=== PATIENT | female | born 1980 | race Caucasian/White ===

== ENCOUNTER 2021-02-11 08:22 | Emergency (ER) | payer BC, MEDICAID ==
[~2021-02-11] VITALS: Ht 157.5 cm; Wt 69.0 kg
[~2021-02-11 08:22] MED LIST: CYCL-394 PO; PHEN-786 PO; ZOF4T PO
[2021-02-11 08:25] VITALS: BP 116/78
== END 2021-02-11 09:22 | disposition home or self-care (01) ==
LOC: ER 08:22
DX: S93.401A Sprain of unspecified ligament of right ankle, initial encounter (principal); M25.571 Pain in right ankle and joints of right foot; Z98.51 Tubal ligation status; Z88.5 Allergy status to narcotic agent; Z79.899 Other long term (current) drug therapy; X58.XXXA Exposure to other specified factors, initial encounter; Y93.89 Activity, other specified; Y92.89 Other specified places as the place of occurrence of the external cause; Y99.8 Other external cause status
CPT/HCPCS: 29515; 73610; 99283

== ENCOUNTER 2021-03-03 16:22 | Emergency (ER) | payer MEDICAID ==
[~2021-03-03] VITALS: Ht 157.5 cm; Wt 77.3 kg
[2021-03-03 16:54] VITALS: BP 129/88
[2021-03-03] MEDS ORDERED: HYDR-3965 PO (20:29)
== END 2021-03-03 20:51 | disposition home or self-care (01) ==
LOC: ER 16:23
DX: M25.561 Pain in right knee (principal); Z88.8 Allergy status to other drugs, medicaments and biological substances; Z79.899 Other long term (current) drug therapy; Z87.440 Personal history of urinary (tract) infections; Z87.442 Personal history of urinary calculi; Z98.51 Tubal ligation status
CPT/HCPCS: 29530; 73564; 99283

== ENCOUNTER 2023-01-29 03:14 | Emergency (ER) | payer MEDICAID ==
[~2023-01-29] VITALS: Ht 157.5 cm; Wt 81.8 kg
[2023-01-29 03:52] LABS: BASOPHILS % (AUTO) 0.5 % (0-1); EOSINOPHILS # (AUTO) 0.2 X10'3 (0-0.9); EOSINOPHILS % (AUTO) 2.5 % (0-6); HEMATOCRIT 38.8 % (35.0-45.0); HEMOGLOBIN 13.5 g/dl (12.0-16.0); LYMPHOCYTES # (AUTO) 2.8 X10'3 (1.1-4.8); LYMPHOCYTES % (AUTO) 34.8 % (21-51); MEAN CORPUSCULAR HEMOGLOBIN 31.8 PG (27.0-31.0); MEAN CORPUSCULAR HGB CONC 34.8 g/dL (33.0-36.5); MEAN CORPUSCULAR VOLUME 91.5 FL (78-98); MEAN PLATELET VOLUME 8.7 FL (7.4-10.4); MONOCYTES # (AUTO) 0.5 X10'3 (0-0.9); MONOCYTES % (AUTO) 6.7 % (2-12); NEUTROPHILS # (AUTO) 4.4 X10'3 (1.8-7.7); NEUTROPHILS % (AUTO) 55.5 % (42-75); PLATELET COUNT 259 X10'3 (140-440); RED BLOOD COUNT 4.24 X10'6 (4.20-5.60); RED CELL DISTRIBUTION WIDTH 12.1 % (11.5-14.5)
[2023-01-29] MEDS ORDERED: LIDOcaine Viscous 15ml cup MM ONE (03:55)
[2023-01-29] MEDS ORDERED: acetaminophen 325mg tablet PO ONE (03:55)
[2023-01-29] MEDS ORDERED: famotidine 20mg tablet PO ONE (03:55)
[2023-01-29] MEDS ORDERED: mag hydrox/Alum hydrox/simeth 30ml oral suspension PO ONE (03:55)
[2023-01-29 04:07] LABS: ALANINE AMINOTRANSFERASE 30 U/L (12-78); ALBUMIN 3.8 G/DL (3.4-5.0); ALBUMIN/GLOBULIN RATIO 1.2 (1.1-1.5); ALKALINE PHOSPHATASE 76 IU/L (46-116); ANION GAP 7 (8-16); ASPARTATE AMINO TRANSFERASE 14 U/L (10-37); BILIRUBIN,TOTAL 0.2 MG/DL (0.1-1.0); BLOOD UREA NITROGEN 18 MG/DL (7-18); BUN/CREATININE RATIO 22.2 (10.0-20.0); CALCIUM 9.1 MG/DL (8.5-10.1); CHLORIDE 106 MMOL/L (99-107); CREATININE 0.81 MG/DL (0.40-0.90); GLUCOSE 143 MG/DL (70-104); POTASSIUM 3.7 MMOL/L (3.5-5.1); SODIUM 139 MMOL/L (135-145); TOTAL CARBON DIOXIDE 25.9 MMOL/L (24-32); eGFR 77 ML/MIN
[2023-01-29] MEDS ORDERED: aspirin 325mg tablet PO ONE (04:20)
[2023-01-29] MEDS ORDERED: aspirin 325mg tablet ONE (04:24)
[2023-01-29 04:43] LABS: D-DIMER 0.84 MG/L FEU (0-0.50)
[2023-01-29] MEDS ORDERED: methylPREDNISolone sod succ 125mg/2ml vial IV ONE (04:50)
[2023-01-29] MEDS ORDERED: ipratropium/albuterol 3ml nebule NEB ONE (04:50)
[2023-01-29 06:10] VITALS: BP 105/75
== END 2023-01-29 06:11 | disposition home or self-care (01) ==
LOC: ER 03:15
DX: R07.9 Chest pain, unspecified (principal)
CPT/HCPCS: 36415; 71045; 80053; 83880; 84484; 85025; 85379; 93005; 99285

== ENCOUNTER 2025-02-04 13:08 | Emergency (ER) | payer OTHER, BC ==
[~2025-02-04] VITALS: Ht 157.5 cm; Wt 91.0 kg
[2025-02-04 13:17] VITALS: BP 149/94; PULSE 81; RESP 18; O2SAT 98
--- NOTE | 2025-02-04 13:52 | RADIOLOGY REPORT ---
CLINICAL INDICATION: LT.ANKLE PAIN TECHNIQUE: Left DI ANKLE, COMPLETE(3VW MIN) Comparison: ANKLE, COMPLETE(3VW MIN) on DOS: 02/11/21 FINDINGS/IMPRESSION: : There is no evidence of acute fracture or dislocation. Soft tissues are unremarkable.
--- NOTE | 2025-02-04 16:37 | Physician Documentation ---
History of Present Illness ~ Chief Complaint: Ankle pain Stated Complaint: ANKLE PAIN/EXTREMITY SWELLING Time Seen by MD: 15:33 Primary Medical Doctor: [facility] HPI 44-year-old female presents as a worker's comp injury exacerbation. States that she has had increased left lower extremity ankle pain and swelling.. She says that she has been seen for her worker's comp injury at [facility] and evaluated for a DVT. Because of her increased leg swelling. Said that the ultrasound was negative in his was done in the last two three weeks Her concern also is that she had a recent allergic reaction to an unknown substance which caused her to itch all over. 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 Denies any recent injury. States she works at the [employer] in his on her feet throughout the day. Reports pain with ambulation Day of Onset: Feb 04, 2025 Tetanus witin 5 years: Yes Medication Reconciliation Allergies: Coded Allergies: codeine (Verified Allergy, 11/18/09) Scheduled Cyclobenzaprine HCl (Cyclobenzaprine HCl), 10 MG PO BID Naproxen (Naproxen), 1 TAB PO Q12H Prednisone (Prednisone), 1 TAB PO DAILY Scheduled PRN Ondansetron ODT* (Zofran ODT*), 1 TAB PO Q6H PRN for nausea/vomiting Phenazopyridine Hcl (Pyridium tablet), 2 TAB PO Q8H PRN for pain with urination Past Medical History Past Medical History: *CARDIOVASCULAR*, Kidney Stones, UTI Past Surgical History: hysterectomy, tubal ligation Other Past Surgical History: Salivary Stone Removal Alcohol Use: None Drug Use: none Lives with: Family Lives In: Home Review of Systems All Other Systems at this time: Reviewed and Negative ROS As stated above in the HPI, otherwise all systems are reviewed and negative. Physical Exam Vital Signs: Temperature: 97.6, Source: Temporal, Heart Rate: 81, Respiratory Rate: 18, BP: 149/94, Pulse Oximetry: 98, Weight: 91.000 Physical Exam General: Alert, no apparent distress. Extremities: Normal range of motion, no deformity. Left ankle notable for swelling in the lateral aspect., negative Michael's Neurologic: Oriented x4. Psychiatric: Normal mood and affect. Skin: Normal color, warm and dry. No edema, no ecchymosis. Progress Results/Orders Results/Orders Orders - NOEL BACA [employer] Ankle, Complete(3vw Min) (02/04/25 13:27) Ortho Orders (02/04/25 ) Completed Orders - NOEL BACA NP Ankle, Complete(3vw Min) (02/04/25 13:27) Vital Signs 02/04/25 02/04/25 13:17 16:53 Temp 97.6 97.6 Pulse 81 Resp 18 B/P (MAP) 149/94 Pulse Ox 98 Medical Decision Making Findings Based on patient's complaint I suspect that she is preventing the healing of a left ankle sprain. Discussed this with the that her maintaining constant ambulation and bearing weight on an injured ankle is going to prevent healing of it. She has missed work for a couple of days I am going to give her a few more days off and advised her to follow up with worker's comp. I am not suspecting DVT as she has already been evaluated for this. Regarding her allergic reaction I advised her this to take cetirizine at home Going to give her some crutches and an ankle brace along with a work note Ankle Diff Dx:Considerations: Include: Abrasion, Arthritis, Contusion, DJD, Fracture-metatarsal, Fracture-fibula, Fracture-tarsal, Fracture-tibia, Gout, Hematoma, Laceration, Malunion, Neurovascular injury, Nonunion, Open fracture, Osteomyelitis, Rheumatoid arthritis, Sprain, Septic, Ulcer, Other Departure Disposition: 01 HOME / SELF CARE / HOMELESS Impression: Primary Impression: Sprain of ankle Condition: Stable Discharge Instructions: Ankle Sprain Departure Forms: Excuse form Work or School Excused From: Work Excuse beginning now through the following date: Feb 07, 2025 May Return but still avoid physical Activity from now until: Feb 07, 2025 May Return to full physical activity as of: Feb 07, 2025 Referrals: NO PRIMARY CARE PROVIDER (PCP) Prescriptions Prednisone (Prednisone) 10 Mg Tablet 1 TAB PO DAILY for 5 Days, #21 TAB Prov: NOEL BACA NP 02/04/25 Naproxen (Naproxen) 500 Mg Tablet 1 TAB PO Q12H, #20 TAB Prov: NOEL BACA NP 02/04/25 Prednisone (Prednisone) 10 Mg Tablet 1 TAB PO DAILY for 5 Days, #5 TAB Prov: NOEL BACA [employer] 02/04/25 Education Educated: Patient Educated regarding: diagnosis Signature Scribe Signature: u Attestation: The note accurately reflects work and decisions made by me.Noel Calvert NP 02/04/25 16:39 NOEL BACA NP Feb 04, 2025 16:37
[2025-02-04 16:53] VITALS: TEMP 97.6
[2025-02-04] MEDS ORDERED: PRED10TA23 PO (16:54)
[2025-02-04] MEDS ORDERED: NAPR-56 PO (16:54)
== END 2025-02-04 16:54 | disposition home or self-care (01) ==
LOC: ER 13:09
DX: S93.402A Sprain of unspecified ligament of left ankle, initial encounter (principal); Z88.5 Allergy status to narcotic agent; Z90.710 Acquired absence of both cervix and uterus; Z87.440 Personal history of urinary (tract) infections; X58.XXXA Exposure to other specified factors, initial encounter; Y93.89 Activity, other specified; Y92.89 Other specified places as the place of occurrence of the external cause; Y99.8 Other external cause status
CPT/HCPCS: 73610; 99283; A6449

== ENCOUNTER 2025-02-14 02:18 | Emergency (ER) | payer BC, OTHER ==
[~2025-02-14] VITALS: Ht 157.5 cm; Wt 90.9 kg
[~2025-02-14 02:18] MED LIST changes: +NAPR-56 PO
--- NOTE | 2025-02-14 02:46 | Physician Documentation ---
History of Present Illness ~ Chief Complaint: Head Injury Stated Complaint: HORSE ACCIDENT Time Seen by MD: 02:32 OK to notify your PCP?: Yes Primary Medical Doctor: JORGITO KING Patient presents to the emergency room for evaluation of facial pain after sneezing. History begins with five days ago patient was bucked off her horse losing consciousness. She would not seek medical attention at this time however during her fall she bit into her lip and was seen by an outside clinic and p laced on antibiotics for human bite to own lip. After sneezing this evening and about midnight she had a sudden feeling of popping in her right maxillary sinus area along with some blurring of vision of her right eye with associated burning-electrical pain pain. No weakness. No pain medicine prior to arrival. Vision of the affected eye is described as blurry and bouncing but denies loss of vision. Pain is exacerbated with palpation and opening mouth and feels a bit numb Tetanus within 5 years?: Yes Medication Reconciliation Allergies: Coded Allergies: codeine (Verified Allergy, Unknown, 02/14/25) Scheduled Amoxicillin Trihydrate (Amoxicillin), 1 TAB PO BID, (Reported) Cyclobenzaprine HCl (Cyclobenzaprine HCl), 10 MG PO BID Gabapentin (Gabapentin), 3 CAP PO Q8H Ketorolac Tromethamine (Ketorolac Tromethamine), 1 TAB PO Q8H, (Reported) Naproxen (Naproxen), 1 TAB PO Q12H Scheduled PRN Ondansetron ODT* (Zofran ODT*), 1 TAB PO Q6H PRN for nausea/vomiting Discontinued Medications Phenazopyridine Hcl (Pyridium tablet), 2 TAB PO Q8H PRN for pain with urination Discontinued Reason: patient no longer taking Prednisone (Prednisone), 1 TAB PO DAILY Discontinued Reason: Auto Discontinued Prednisone (Prednisone), 1 TAB PO DAILY Discontinued Reason: Auto Discontinued Past Medical History Past Medical History: *CARDIOVASCULAR*, Kidney Stones, UTI Past Surgical History: hysterectomy, tubal ligation Other Past Surgical History: Salivary Stone Removal Alcohol Use: None Drug Use: none Lives with: Family Lives In: Home Physical Exam Vital Signs: Temperature: 97.7, Heart Rate: 77, Respiratory Rate: 16, BP: 142/91, Pulse Oximetry: 99, Weight: 90.900 Oxygen Flow Rate: 0 Physical Exam General: Patient is awake, alert, oriented x4 in mild distress Head: Normocephalic and atraumatic. Eyes: Conjunctival normal. EOMI. PERRL. ENT: Mucous membranes moist. Tenderness to palpation to right maxillary area Neck: Supple, trachea is midline. Chest: Clear to auscultation bilaterally without rales, rhonchi, or wheezes. There is no accessory muscle use or retractions. Cardiac: RRR without murmurs, gallops, or rubs. Neuro: Cranial nerves II-XII grossly intact. No focal neuro deficits. Patient ambulating without difficulty. Speaking clearly Progress Progress Note Patient's vision changes have resolved. Headache improving Results/Orders Results/Orders Orders - EARNEST DOYLE MD Ct Head (02/14/25 02:50) Ct Facial Bones/Soft Tissue (02/14/25 02:50) Completed Orders - EARNEST DOYLE MD Ct Head (02/14/25 02:50) Ct Facial Bones/Soft Tissue (02/14/25 02:50) Acetaminophen 1,000mg/100ml Iv (Ofirmev (02/14/25 02:45) Ondansetron Inj. (Zofran 4mg/2ml Vial) (02/14/25 02:45) Diphenhydramine Inj (Benadryl Inj.) (02/14/25 02:45) Fentanyl/Pf (Fentanyl 0.05 Mg/Ml Syringe (02/14/25 03:40) Ketorolac Trometh 15mg/Ml Vial (Toradol (02/14/25 03:45) Prochlorperazine Inj (Compazine Inj) (02/14/25 03:45) Sumatriptan Succ. Inj. (Imitrex 6mg Inj. (02/14/25 03:45) Normal Saline 1000ml (Sodium Chloride 10 (02/14/25 05:10) Carbamazepine Chew Tablet (Tegretol Chew (02/14/25 05:25) Vital Signs 02/14/25 02/14/25 02/14/25 02/14/25 02:21 03:25 03:42 03:53 Temp 97.7 Pulse 77 Resp 16 10 14 10 B/P (MAP) 142/91 Pulse Ox 99 O2 Flow Rate 0 02/14/25 02/14/25 02/14/25 02/14/25 04:41 04:41 05:00 06:42 Temp 97.5 Pulse 54 61 Resp 10 10 14 15 B/P (MAP) 130/84 (99) 110/69 (83) Pulse Ox 98 98 02/14/25 02/14/25 02/14/25 02/14/25 07:25 07:31 07:35 10:23 Pulse 68 60 Resp 16 17 15 B/P (MAP) 116/84 (95) 112/82 Pulse Ox 95 99 Medical Decision Making Findings Patient presents to the emergency room for evaluation of headache in the light of recent head trauma. Differentials include but are not limited to intracranial bleed, acute angle glaucoma, trigeminal neuralgia, cluster headache. In the light of recent trauma CT scan was performed which was negative for acute findings. Pain is described as shocking/electrical I do believe this is related to some degree of nerve compression and possibly leading to trigeminal neuralgia. Eye exam is normal and she denies any current eye pain or pain with manipulation of I. She did have some vision changes earlier however those of completely resolved but facial pain persists although improved Addendum 6:00 a.m.: I received sign-out on this patient at shift change. Briefly: She had a recent head injury, and now has facial pain concerning for trigeminal neuralgia. Consult: Neurology was consulted, recommends a MRI brain with and without contrast. They recommend gabapentin 300 t.i.d. for treatment. 6:45 a.m.: Re-evaluation: The patient continues to have facial pain. I discussed the neurology recommendations. Plan: MRI. 9:40 a.m.: MRI report returns normal, no dangerous or acute findings. The patient will be discharged with gabapentin 300 mg t.i.d., as per neurology recommendations. This is likely trigeminal neuralgia, possibly traumatic. She will follow up as an outpatient. She was also encouraged to take regular anti- inflammatories. Departure Time of Disposition: 09:43 Disposition: 01 HOME / SELF CARE / HOMELESS Impression: Primary Impression: Trigeminal neuralgia of right side of face Condition: Improved Discharge Instructions: Trigeminal Neuralgia Referrals: NO PRIMARY CARE PROVIDER (PCP) Prescriptions Gabapentin (Gabapentin) 100 Mg Capsule 3 CAP PO Q8H for 30 Days, #90 CAP 2 Refills Prov: NOÉ ANDRADE MD 02/14/25 Education Educated: Patient Educated regarding: diagnosis, treatment Signature Scribe Signature: na Attestation: The note accurately reflects work and decisions made by me.Earnest Doyle MD 02/17/25 18:58 na EARNEST DOYLE MD Feb 14, 2025 02:46 NOÉ ANDRADE MD Feb 14, 2025 06:59
[2025-02-14] MEDS: acetaminophen 1,000mg/100ml IV 100 ML IV ONE (03:15)
[2025-02-14] MEDS: diphenhydrAMINE 50 mg/ml inj IV ONE (03:19)
[2025-02-14] MEDS: ondansetron/PF 4mg/2ml inj IV ONE (03:24)
--- NOTE | 2025-02-14 03:38 | RADIOLOGY REPORT ---
EXAM: CT CT HEAD INDICATION: head strike 5 days ago, headache TECHNIQUE: CT of the head without intravenous contrast. Radiation Dose : 1. Head: CT Dose: CTDI volume is 57.72 mGy. Dose-length product is 1002.5 mGy*cm The dose indicators for CT are the volume Computed Tomography (CT) Dose Index (CTDIvol) and the Dose Length Product (DLP), and are measured in units of mGy and mGy-cm, respectively. These indicators are not patient dose, but values generated from the CT scanner acquisition factors. The report includes radiation exposure data for exposures received during this examination. COMPARISON: None FINDINGS: There is no evidence of acute intracranial hemorrhage, extra-axial collection, mass effect, midline s hift, herniation or hydrocephalus. The ventricles, sulci and cisterns are age appropriate. The york-white differentiation is intact. The visualized paranasal sinuses and mastoid air cells are clear. The surrounding soft tissues and osseous structures are unremarkable. IMPRESSION: 1. No acute intracranial abnormality. Radiation optimization: All CT scans at this facility use at least one of these dose optimization julian hniques: automated exposure control mA and/or kV adjustment per patient size (includes targeted exam s where dose is matched to clinical indication) or iterative reconstruction.
[2025-02-14] MEDS: fentaNYL/PF 50MCG/1 ML 2ML syringe IV ONE ×2 (03:42→07:25)
--- NOTE | 2025-02-14 03:45 | RADIOLOGY REPORT ---
HISTORY: head strike 5 days ago, headache TECHNIQUE: Nonenhanced axial images through the facial bones with coronal and sagittal MPR. Radiation Dose Information: CT Dose: CTDI volume is 54.49 mGy. Dose-length product is 933.05 mGy*cm COMPARISON: None FINDINGS: Mandible: Unremarkable Maxilla: Unremarkable Zygomatic arches: Unremarkable Nasal bone: Unremarkable Orbits: Unremarkable Sinuses: Minimal right maxillary sinus mucosal thickening. The remaining paranasal sinuses are elba ar. Facial swelling: None IMPRESSION: 1. No acute facial fractures. Minimal right maxillary mucosal sinus disease. Radiation optimization: All CT scans at this facility use at least one of these dose optimization julian hniques: automated exposure control mA and/or kV adjustment per patient size (includes targeted exam s where dose is matched to clinical indication) or iterative reconstruction.
[2025-02-14] MEDS: ketorolac trometh 15mg/ml vial 15 MG/ML ML IV ONE (03:53)
[2025-02-14] MEDS: proCHLORperazine 10 MG/2 ml inj IV ONE (03:55)
[2025-02-14] MEDS: SUMAtriptan succ. 6 MG/0.5ml vial SQ ONE (04:00)
[2025-02-14] MEDS: normal saline 1000ml 1,000 ML IV ONE (05:19)
[2025-02-14] MEDS: carBAMazepine 100mg chewable tablet PO ONE (05:54)
--- NOTE | 2025-02-14 06:24 | [facility] CONSULT REPORT ---
[facility] Procedure Note [facility] Procedure Note Consult [facility] Note # Demographics Consult Type: General Neurology Patient Location: Emergency Room First Name: JONATHON Last Name: FADY Date of : 1980 Age: 44 Gender: Female Facility: [facility] Time of Initial Page (): 02/14/2025 05:41 Time of Return Call (): 02/14/2025 05:42 # HPI Chief Complaint: facial pain History: 44 y/o F 5 days ago hit in the face by her horse associated with LOC, but now she is having electric shock sensation in the V2 distribution on the R associated with a blurry vision. She has had Tylenol, Toradol, Benadryl, Imitrex, Compazine which has not helped. The pain worsens when she opens her mouth and sneezes. She has a headache, and some numbness to the R face. She denies weakness or difficulty walking, dysarthria but says she has some trouble finding words. # Scores Time of exam and NIHSS (): 02/14/2025 06:11 Level of Consciousness 1a: [0] = Alert; keenly responsive LOC Questions 1b: [0] = Answers both questions correctly LOC Commands 1c: [0] = Performs both tasks correctly Best Gaze 2: [0] = Normal Visual 3: [0] = No visual loss Facial Palsy 4: [0] = Normal symmetrical movements Motor Arm Left 5a: [0] = No drift Motor Arm Right 5b: [0] = No drift Motor Leg Left 6a: [0] = No drift Motor Leg Right 6b: [0] = No drift Limb Ataxia 7: [0] = Absent Sensory 8: [0] = Normal Best Language 9: [0] = No aphasia Dysarthria 10: [0] = Normal Extinction and Inattention 11: [0] = No abnormality NIHSS Total: 0 # Exam SBP: 142 DBP: 91 # PMH-FH-SH Medications: flexeril, naproxen, zofran # Data Head CT: - no bleed - per radiologist read # Assessment Impression: post traumatic trigeminal neuralgia # Plan Imaging: (urgency: routine): - MRI Brain with AND without contrast Medication: Gabapentin 300mg TID Other: - If patient has any neurological deterioration please call me back immediately # Logistics Attestation of consult completion: The patient is located at: [facility]. Facility staff participated in the visit. I performed this telemedicine visit from my offsite office utilizing interactive 2 way audio and visual telecommunication technology. Total time spent in telemedicine encounter: I spent 20 minutes reviewing clinical data and/or imaging, obtaining history, examining the patient, communicating with the onsite care team, and in preparation of this report. # Demographics First Name: JONATHON Last Name: FADY Facility: [facility] Electronically signed at 02/14/2025 06:23 ([place] Time) by Yasir Riley MD Neuro Consult Order placed for: Yes YASIR RILEY MD Feb 14, 2025 06:24
[2025-02-14 06:42] VITALS: TEMP 97.5
[2025-02-14] MEDS ORDERED: AMOX875T10 PO (06:45)
[2025-02-14] MEDS ORDERED: KETO10TA2 PO (06:49)
[2025-02-14] MEDS: gabapentin 300mg capsule PO ONE (07:25)
--- NOTE | 2025-02-14 09:10 | RADIOLOGY REPORT ---
MRI BRAIN WITHOUT CONTRAST CLINICAL HISTORY: traumatic trigeminal neuralgia, face pain TECHNIQUE: Multiplanar, multisequence MR images of the brain without intravenous contrast. Comparison: CT CT HEAD on DOS: 02/14/25 FINDINGS: There is no restricted diffusion. The york and white matter signal is appropriate. There is no eviden ce of hemorrhage, mass, mass effect or midline shift. There is no hydrocephalus or extra-axial fluid collection. The visualized intracranial vasculature demonstrates appropriate flow-voids. The sagittal midline structures appear unremarkable. The craniocervical junction is within normal limits. The surinder varium demonstrates normal marrow signal. The paranasal sinuses and mastoid air cells are clear. IMPRESSION: 1. There is no acute intracranial process. HS:Y
[2025-02-14] MEDS ORDERED: GABA-530 PO (09:44)
[2025-02-14 10:23] VITALS: BP 112/82; PULSE 60; RESP 15; O2SAT 99
[2025-02-14] MEDS ORDERED: GADOTERATE MEGLUMINE 7.5 MMOL/15 ML VIAL IV ONE (19:03)
== END 2025-02-14 10:20 | disposition home or self-care (01) ==
LOC: ER 02:19
DX: G50.0 Trigeminal neuralgia (principal); Z88.5 Allergy status to narcotic agent; Z90.710 Acquired absence of both cervix and uterus; Z79.899 Other long term (current) drug therapy; Z87.442 Personal history of urinary calculi; Y04.1XXA Assault by human bite, initial encounter; Y93.89 Activity, other specified; Y92.89 Other specified places as the place of occurrence of the external cause; Y99.8 Other external cause status
CPT/HCPCS: 70450; 70486; 70553; 96361; 96365; 96372; 96375; 96376; 99285; J0131; J0780; J1200; J1885; J2405; J3010; J3030; J7030